=== PATIENT | male | born 1940 | race Caucasian/White ===

== ENCOUNTER → 2016-11-27 | Outpatient (CLI) | payer MEDICARE ==
[~2016-11-27] VITALS: Ht 180.3 cm; Wt 125.2 kg
[~2016-11-27] MED LIST: ACET50TAOT PO; ALPR0.5T3 PO; BIMA01SOL OU; COMB0.2S OU; DULC10SU2 PR; FLOM5CAP PO; FLUT1POW2; IPRASOL4 IN; LIDOCAINE 2% INJ 100 MG/5 ML SDV (FOR ANES.) As Ordered ONE; MIRA33504 PO; NS 1,000 ML IV SCH; OMEP20CA3 PO; PROPOFOL 200 MG/20 ML VIAL As Ordered ONE; TYLE1TAB5 PO; VALS80TA PO; [UNRECOGNIZED DRUG - OTHER] PO
--- NOTE | 2016-11-27 12:13 | ROOR ---
Patient Name: Carlos Enrique Cadet Procedure Date: 11/27/2016 11:49 AM Date of : 1940 Age: 76 Room: [facility] Gender: Male Note Status: Finalized Procedure: Upper GI endoscopy Indications: Nausea Providers: Domenico RIVERA MD Referring MD: Mayda Nunn NP Requesting Provider: Medicines: Monitored Anesthesia Care Complications: No immediate complications. Procedure: Pre-Anesthesia Assessment: - The heart rate, respiratory rate, oxygen saturations, blood pressure, adequacy of pulmonary ventilation, and response to care were monitored throughout the procedure. The Endoscope was introduced through the mouth, and advanced to the second part of duodenum. The upper GI endoscopy was accomplished without difficulty. The patient tolerated the procedure well. Findings: Patchy candidiasis was found in the lower third of the esophagus. The examined esophagus was normal. The entire examined stomach was normal. The examined duodenum was normal. Impression: - Monilial esophagitis. - Normal esophagus. - Normal stomach. (large compliant stomach-possible gastroparesis) - Normal examined duodenum. - No specimens collected. Recommendation: - Gastroparesis diet: - Eat smaller, more frequent meals throughout the day. - Low fat diet. - Liquid/soft foods are tolerated better than solid foods. - Low fiber/well cooked vegetables are tolerated better than high fiber/fibrous foods/raw vegetables. - Avoid medications that inhibit gastric/intestinal motility such as narcotic medications. - Nystatin suspension 100,000 units PO QID for 10 days. - (the script was sent to your pharmacy on file) Domenico Rivera MD Domenico RIVERA MD 11/27/2016 12:12:48 PM This report has been signed electronically. Number of Addenda: 0 Note Initiated On: 11/27/2016 11:49 AM Estimated Blood Loss: Estimated blood loss: none.
--- NOTE | 2016-11-27 12:42 | ROOR ---
Patient Name: Carlos Enrique Cadet Procedure Date: 11/27/2016 11:50 AM Date of : 1940 Age: 76 Room: [facility] Gender: Male Note Status: Finalized Procedure: Colonoscopy Indications: Generalized abdominal pain, Constipation Providers: Domenico RIVERA MD Referring MD: Mayda Nunn NP Requesting Provider: Medicines: Monitored Anesthesia Care Complications: No immediate complications. Procedure: Pre-Anesthesia Assessment: - The heart rate, respiratory rate, oxygen saturations, blood pressure, adequacy of pulmonary ventilation, and response to care were monitored throughout the procedure. The Colonoscope was introduced through the anus and advanced to the cecum, identified by appendiceal orifice and ileocecal valve. The colonoscopy was somewhat difficult due to Foreign body/tooth pick/wooden spear lodged/penetrating sigmoid colon at 40 cm. The patient tolerated the procedure well. The quality of the bowel preparation was good. Findings: The perianal and digital rectal examinations were normal. (Exam: Complete, Prep: Good or Excellent.) A foreign body was found at 40 cm proximal to the anus. Multiple medium-mouthed diverticula were found in the sigmoid colon. There was narrowing of the colon in association with the diverticular opening. This was biopsied with a cold forceps for histology. The exam was otherwise without abnormality on direct and retroflexion views. Impression: - (Exam: Complete, Prep: Good or Excellent.) - Foreign body (wooden spear/toothpick) lodged or perhaps penetrating sigmoid colonic wall at 40 cm proximal to the anus. There is associated edema, granulation tissue and inflammatory polypoid tissue on both ends of lodged/penetrating toothpick.--biopsied - I was able to get around this foreign body, and the rest of the colon is unremarkable. - NOTE: I did not remove this foreign body, as I cannot determine depth of penetration. - The examination was otherwise normal on direct and retroflexion views. Recommendation: - Await pathology results. - This foreign body appears to be a chronic, as granulation tissue is present. (I will hold off on antibiotics for now) - Refer to a surgeon at appointment to be scheduled. Domenico Rivera MD Domenico RIVERA MD 11/27/2016 12:41:48 PM This report has been signed electronically. Number of Addenda: 0 Note Initiated On: 11/27/2016 11:50 AM Estimated Blood Loss: Estimated blood loss: none.
[2016-11-27 12:54] VITALS: BP 152/81
== END ==
LOC: M OPP 10:12
PROVIDERS: ATTEND Internal Medicine Gastroenterology
DX: R10.84 Generalized abdominal pain (principal); K59.00 Constipation, unspecified; Z80.0 Family history of malignant neoplasm of digestive organs; T18.4XXA Foreign body in colon, initial encounter; Y92.9 Unspecified place or not applicable; Y93.9 Activity, unspecified; K57.30 Diverticulosis of large intestine without perforation or abscess without bleeding; R11.0 Nausea; B37.81 Candidal esophagitis; I10 Essential (primary) hypertension; J44.9 Chronic obstructive pulmonary disease, unspecified; G24.9 Dystonia, unspecified; Z79.899 Other long term (current) drug therapy

== ENCOUNTER → 2017-01-13 | Outpatient (CLI) | payer MEDICARE ==
[~2017-01-13] MED LIST changes: +GASTROGRAFIN SOLUTION 30ML (Q9963) As Ordered ONE; +ISOVUE-370 76% 100ML VIAL (Q9967) As Ordered ONE; -LIDOCAINE 2% INJ 100 MG/5 ML SDV (FOR ANES.) As Ordered ONE; -NS 1,000 ML IV SCH; -PROPOFOL 200 MG/20 ML VIAL As Ordered ONE
--- NOTE | 2017-01-14 09:31 | REP ---
Clinical: Colonic foreign body. Technique: Axial contrast enhanced images from the lung bases to the pubic symphysis using oral 100 ml Isovue 370 intravenous contrast material with precontrast and delayed images of the abdomen as well as coronal and sagittal re-formations. Comparison: None. Findings: There is a 5 cm tubular foreign body within the midsigmoid colon of uncertain etiology or chronicity (images 102 - 114) which may reflect fracture rectal tube. The surrounding colon appears collapsed and mucosal thickening cannot be excluded. There is no evidence for associated bowel obstruction or free air and no fluid collection to suggest abscess. Further evaluation of the enteric system demonstrates diffuse colonic diverticulosis without evidence for acute diverticulitis and relatively normal appearance to the stomach and small bowel. There is no evidence for bowel obstruction or acute inflammatory process. Liver, spleen, pancreas, gallbladder, bilateral adrenal glands are normal. The kidneys demonstrate few bilateral cysts measuring up to approximately 2.5 cm diameter. Evaluation of the enteric system described above. Pelvis demonstrates normal bladder and age appropriate prostate/seminal vesicles. No free air. No ascites. No intraperitoneal or retroperitoneal adenopathy. No mass lesion. Atherosclerotic changes to the vasculature noted without aneurysm. Musculoskeletal structures demonstrate age-related degenerative changes without focal osseous abnormality. Lung bases demonstrate chronic-appearing changes including scarring to the left lower lobe. Impression: 1. A 5 cm tubular foreign body in the mid sigmoid colon as described above may represent fractured rectal tube. No associated bowel obstruction, free air / perforation or drainable collection/abscess. 2. Bilateral renal cysts. 3. Diverticulosis without acute diverticulitis. 4. Atherosclerotic changes to the vasculature and degenerative changes the musculoskeletal structures. Signed by Uriah He MD 01/14/2017 09:22 A
== END ==
LOC: M RAD 14:57
PROVIDERS: ATTEND Surgery
DX: T18.4XXA Foreign body in colon, initial encounter (principal); N28.1 Cyst of kidney, acquired; K57.90 Diverticulosis of intestine, part unspecified, without perforation or abscess without bleeding; Y92.9 Unspecified place or not applicable
CPT/HCPCS: 74178; Q9963; Q9967

== ENCOUNTER → 2017-01-18 | Outpatient (CLI) | payer MEDICARE ==
[~2017-01-18] MED LIST changes: -GASTROGRAFIN SOLUTION 30ML (Q9963) As Ordered ONE; -ISOVUE-370 76% 100ML VIAL (Q9967) As Ordered ONE; +LIQUID POLIBAR PLUS 105% w/v 1900ML BTL As Ordered ONE
--- NOTE | 2017-01-18 17:45 | REP ---
BARIUM ENEMA, AIR CONTRAST: The procedure was performed under the direct supervision of Dr. Walker. The images were reviewed with Dr. Walker. The job developer for deaf adults film shows no organomegaly or pathological masses. The intestinal gas pattern is nonspecific. There are degenerative changes of the spine. Liquid barium and air were instilled into the colon in a retrograde flow of the barium and air mixture. The colon is normal in position and contour. Haustration is unremarkable throughout. There are innumerable diverticula in the sigmoid colon as well as scattered diverticula throughout the remainder of the colon. There is free flow of contrast to the cecum. The appendix is visualized. There are no annular constricting lesions identified. There are no polypoid masses identified. There are no foreign bodies identified. IMPRESSION: Pancolonic diverticula with most of the diverticula seen in the sigmoid colon. There is no evidence of foreign body. 3 minutes and 35 seconds of fluoroscopic time was utilized for this procedure. Reviewed by JULIO CESAR Francois 01/19/2017 10:19 AEdited and Signed by Shiv Walker MD 01/19/2017 05:04 P
== END ==
LOC: M RAD 08:56
PROVIDERS: ATTEND Surgery
DX: K57.30 Diverticulosis of large intestine without perforation or abscess without bleeding (principal)

== ENCOUNTER → 2017-04-16 | Outpatient (CLI) | payer MEDICARE ==
[~2017-04-16] MED LIST changes: -LIQUID POLIBAR PLUS 105% w/v 1900ML BTL As Ordered ONE
--- NOTE | 2017-04-16 19:13 | REP ---
MRI lumbar spine without contrast: History: Low back pain. History of back surgery remotely. No comparison lumbar spine MRI study. Comparison is made with CT imaging of the abdomen from 01/13/2017. Technique: Sagittal and axial T1 and T2-weighted scans are acquired in the usual fashion with and without fat saturation. Sequences include spin echo, turbo spin-echo, and STIR imaging sequences. Lumbar vertebral body heights are preserved. There is diffuse degenerative disc disease. This is most pronounced at L4-5, L3-4, L1-2 and L5-S1. Conus medullaris is normal in position and appearance at the inferior aspect of L1. The patient is status post L5 laminectomy. There is an oval-shaped dorsal extra spinal postoperative fluid collection 2.2 cm in craniocaudal span x 1.5 cm medial to lateral x 0.7 cm anterior posterior at the laminectomy site. This is seen to be a radiolucency surrounded by a calcification or ossification on recent CT. It does not impinge on the thecal sac. There is posterior disc bulging versus granulation tissue which does indent the ventral margin of the thecal sac at the L4-5 intervertebral disc level. The canal is mildly stenotic at this level. There is facet hypertrophy bilaterally. At L5-S1, there is moderate facet hypertrophy bilaterally right greater than left. This compresses the dorsal lateral margin of the thecal sac on the right side at L5-S1. There is mild diffuse disc bulging. There is mild right and moderate left-sided neural foraminal narrowing L5-S1. At L3-4, there is a broad-based focal disc protrusion indenting the thecal sac. This combined with developmentally short pedicles and ligamentum flavum and facet hypertrophy produce moderate central canal stenosis at L3-4. The dimension of the thecal sac is 11 mm. There is some [id number] thecal sac compression from facet and ligamentum flavum hypertrophy. Mild to moderate bilateral neural foraminal narrowing is seen at L3-4. At L2-3, there is mild central canal stenosis due to developmentally short pedicles, disc bulging and ligamentum flavum and facet hypertrophy. AP dimension of the thecal sac at L2-3 is 8 mm. At L1-2 there is mild central canal stenosis due to these same factors. There is mild bilateral neural foraminal narrowing. Impression: Degenerative spondylosis changes diffusely. 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 Multilevel bilateral neural foraminal narrowing as above. Status post laminectomy L4-5. Signed by Shiv Walker MD 04/16/2017 07:41 P
== END ==
LOC: M RAD 16:01
PROVIDERS: ATTEND Nurse Practitioner
DX: M47.816 Spondylosis without myelopathy or radiculopathy, lumbar region (principal)